=== PATIENT | male | born 1945 | race Caucasian/White ===

== ENCOUNTER → 2017-04-18 | Outpatient (CLI) | payer MEDICARE, BC ==
[~2017-04-18] VITALS: Ht 182.9 cm; Wt 85.0 kg
[~2017-04-18] MED LIST: ABILIFY2 MG PO; AMBIEN 10MG10 MG PO; ASPIRIN 81M81 MG/TA2 PO; CELEXA40 MG PO; GLUCOPHAGE500 MG/TAB PO; GLUCOSAMINE & C1 CA2 PO; GLUCOSAMINE & C1 TAB PO; LIPITOR 10MG10 MG PO; MASON NATURAL1200 MG PO; MUCINEX D1 TER PO; MULTI VITAMINS1 TAB PO; OSCAL 500 TAB500 MG PO; PATADAY 2.5 ML2.5 ML OU; PRINIVIL10 MG PO; RELAFEN 50500 MG/TAB PO; SYNTHROID0.1 MG/TAB PO; VITAMIN C500 MG PO; XALATAN EYE DROPS OU; ZYRTEC 10MG10 MG PO
[2017-04-18 09:22] VITALS: BP 134/93; PULSE 65
== END ==
LOC: COL.RAD 08:54
DX: M79.89 Other specified soft tissue disorders (principal)

== ENCOUNTER 2020-02-19 07:03 | Emergency (ER) | payer MEDICARE, BC ==
[~2020-02-19] VITALS: Ht 183 cm; Wt 84.1 kg
[2020-02-19 07:05] VITALS: TEMP 96.5
[2020-02-19 07:29] LABS: BASO # 0.1 (0.0-0.2); BASO % 0.8 % (0.0-2.0); EOS # 0.1 (0.0-0.7); EOS % 1.2 % (0-4.0); GRAN # 4.9 (1.4-6.5); GRAN % 64.8 % (42.2-75.2); HEMATOCRIT 44.1 % (42.0-52.0); HEMOGLOBIN 14.4 g/dl (13.5-18.0); LYMPH # 1.7 (1.2-3.4); LYMPH % 22.8 % (20.0-51.0); MEAN CELL VOLUME 85 fl (80.0-100.0); MEAN CORPUSCULAR HEMOGLOBIN 28 pg (27.0-31.0); MEAN CORPUSCULAR HGB CONC 33 g/dl (33.0-37.0); MEAN PLATELET VOLUME 9.3 fl (7.4-10.4); MONO # 0.7 (0.1-0.6); MONO % 9.3 % (1.7-9.3); PLATELET COUNT 281 K/mm3 (130-400); RED BLOOD COUNT 5.17 M/mm3 (4.20-5.60); REDCELL DISTRIBUTION WIDTH-CV 13.5 % (11.5-14.5)
[2020-02-19 07:32] LABS: INR 1.1 (0.8-3.0); PROTHROMBIN TIME 12.3 SECONDS (9.7-12.8)
[2020-02-19 07:35] LABS: PARTIAL THROMBOPLASTIN TIME 30.7 SECONDS (26.0-37.0)
[2020-02-19 07:38] LABS: ALBUMIN 4.3 gm/dL (3.5-5.0); BILIRUBIN,TOTAL 2.1 mg/dL (0.0-1.0); CALCIUM 9.2 mg/dL (8.4-10.2); CREATININE, serum 1.02 (0.66-1.25); TOTAL PROTEIN 7.6 gm/dL (6.4-8.2)
[2020-02-19 07:51] LABS: TROPONIN-I 0.294 ng/mL (0.000-0.035)
[2020-02-19 08:49] VITALS: BP 143/108; PULSE 89
== END 2020-02-19 08:45 | disposition short-term general hospital (02) ==
LOC: COL.ER 07:03
PROVIDERS: Family Medicine
DX: I21.29 ST elevation (STEMI) myocardial infarction involving other sites (principal); I10 Essential (primary) hypertension; E11.9 Type 2 diabetes mellitus without complications; Z79.82 Long term (current) use of aspirin; Z79.84 Long term (current) use of oral hypoglycemic drugs
CPT/HCPCS: J1644; J3101

== ENCOUNTER 2020-05-23 13:07 | Outpatient (RCR) | payer MEDICARE, BC | END 2020-05-29 | disposition home or self-care (01) | LOC: COL.CR | DX: I21.9 Acute myocardial infarction, unspecified (principal); Z98.61 Coronary angioplasty status ==